=== PATIENT | female | born 1940 | race Caucasian/White ===

== ENCOUNTER 2016-06-12 20:50 | Inpatient (IN) | payer MEDICARE, OTHER ==
[~2016-06-12] VITALS: Ht 144.8 cm; Wt 49.4 kg
[2016-06-13] VITALS (8 sets, daily range): BP systolic 148–194; RESP 12–22; TEMP 97.3–98.9; Ht 144.8 cm; Wt 49.4 kg
[2016-06-13] MEDS ORDERED: ACETAMINOPHEN 325 MG TAB PO PRN (02:15)
[2016-06-13] MEDS ORDERED: ONDANSETRON 4 MG VIAL IV PUSH PRN (02:15)
[2016-06-13] MEDS: SODIUM BICARB 8.4% 150 ML in DEXTROSE 5% 1,000 ML IV SCH ×2 (03:44→20:49)
[2016-06-13] MEDS: amLODIPine 10 MG TAB PO SCH (11:56)
[2016-06-13] MEDS ORDERED: MISSING DOSE XX ONE (15:55)
[2016-06-14] VITALS (11 sets, daily range): BP systolic 137–171; RESP 16–20; TEMP 97.3–100.2
[2016-06-14] MEDS ORDERED: MISSING DOSE XX ONE (06:50)
[2016-06-14] MEDS: SODIUM BICARB 8.4% 150 ML in DEXTROSE 5% 1,000 ML IV SCH (07:37)
[2016-06-14] MEDS: amLODIPine 10 MG TAB PO SCH (09:13)
[2016-06-14] MEDS ORDERED: LORAZEPAM 2 MG/ML VIAL IV PRN (18:30)
[2016-06-14] MEDS: LEVETIRACETAM INJ 500 MG in SODIUM CHLORIDE 0.9% 100 ML IV SCH (20:29)
[2016-06-14] MEDS ORDERED: CEFTRIAXONE 1 GM in SODIUM CHLORIDE 0.9% 50 ML IV ONE (20:35)
[2016-06-14] MEDS: EMYCIN OP OINT 3.5 GM EYE EACH SCH ×2 (21:00)
[2016-06-14] MEDS: LATANOPROST OP SOLN EYE EACH SCH (21:00)
[2016-06-14] MEDS: SODIUM CHLORIDE 0.9% FLUSH BAG 500 ML IV SCH (22:50)
[2016-06-15 04:12] VITALS: BP_SYST 148; RESP 18; TEMP 98.1
[2016-06-15 07:25] VITALS: BP_SYST 159; RESP 18; TEMP 98.3
[2016-06-15] MEDS: CEFTRIAXONE 1 GM in SODIUM CHLORIDE 0.9% 50 ML IV SCH (09:55)
[2016-06-15] MEDS: amLODIPine 10 MG TAB PO SCH (09:56)
[2016-06-15] MEDS: LEVETIRACETAM INJ 500 MG in SODIUM CHLORIDE 0.9% 100 ML IV SCH ×2 (10:48→19:55)
[2016-06-15 11:35] VITALS: BP_SYST 157; RESP 16; TEMP 97.7
[2016-06-15] MEDS ORDERED: SYSTANE OP SOLN EYE EACH PRN (15:10)
[2016-06-15] MEDS ORDERED: **NOTE TO NURSE XX SCH (15:14)
[2016-06-15 15:42] VITALS: BP_SYST 134; TEMP 98.2
[2016-06-15 19:57] VITALS: BP_SYST 144; RESP 18; TEMP 98.7
[2016-06-15] MEDS: LATANOPROST OP SOLN EYE EACH SCH (20:02)
[2016-06-15] MEDS: ZYLET EYE EACH SCH (20:02)
[2016-06-15] MEDS: EMYCIN OP OINT 3.5 GM EYE EACH SCH ×2 (20:03)
[2016-06-15 23:14] VITALS: BP_SYST 151; RESP 18; TEMP 98.5
[2016-06-16] VITALS (7 sets, daily range): BP systolic 126–156; RESP 16–20; TEMP 97.6–98.8
[2016-06-16] MEDS: SODIUM CHLORIDE 0.9% FLUSH BAG 500 ML IV SCH (04:12)
[2016-06-16] MEDS: ZYLET EYE EACH SCH ×2 (08:37→20:11)
[2016-06-16] MEDS: CEFTRIAXONE 1 GM in SODIUM CHLORIDE 0.9% 50 ML IV SCH (08:37)
[2016-06-16] MEDS: LEVETIRACETAM INJ 500 MG in SODIUM CHLORIDE 0.9% 100 ML IV SCH ×2 (08:37→20:12)
[2016-06-16] MEDS: amLODIPine 10 MG TAB PO SCH (08:37)
[2016-06-16] MEDS: DUONEB INH SCH ×3 (16:47→22:26)
[2016-06-16] MEDS ORDERED: MISSING DOSE XX ONE (17:00)
[2016-06-16] MEDS: FERROUS SUL PO SCH (17:20)
[2016-06-16] MEDS: DOCUSATE SOD 100 MG CAP PO SCH (20:11)
[2016-06-16] MEDS: EMYCIN OP OINT 3.5 GM EYE EACH SCH ×2 (20:12)
[2016-06-16] MEDS: LATANOPROST OP SOLN EYE EACH SCH (20:12)
[2016-06-17 03:00] VITALS: BP_SYST 141; RESP 18; TEMP 98.7
[2016-06-17] MEDS: SODIUM CHLORIDE 0.9% FLUSH BAG 500 ML IV SCH (06:01)
[2016-06-17] MEDS: DUONEB INH SCH ×5 (06:32→22:32)
[2016-06-17 07:52] VITALS: BP_SYST 135; RESP 18; TEMP 98.5
[2016-06-17] MEDS: LEVETIRACETAM INJ 500 MG in SODIUM CHLORIDE 0.9% 100 ML IV SCH ×2 (08:15→19:54)
[2016-06-17] MEDS: amLODIPine 10 MG TAB PO SCH (08:15)
[2016-06-17] MEDS ORDERED: MISSING DOSE XX ONE (08:15)
[2016-06-17] MEDS: ZYLET EYE EACH SCH ×3 (08:15→21:00)
[2016-06-17] MEDS: CEFTRIAXONE 1 GM in SODIUM CHLORIDE 0.9% 50 ML IV SCH (09:04)
[2016-06-17] MEDS: FERROUS SUL PO SCH (09:05)
[2016-06-17 11:44] VITALS: BP_SYST 132; RESP 18; TEMP 98
[2016-06-17 16:21] VITALS: BP_SYST 125; RESP 18; TEMP 98.3
[2016-06-17 20:00] VITALS: BP_SYST 135; RESP 18; TEMP 98.2
[2016-06-17] MEDS: LATANOPROST OP SOLN EYE EACH SCH (20:23)
[2016-06-17] MEDS: DOCUSATE SOD 100 MG CAP PO SCH (20:24)
[2016-06-17] MEDS: EMYCIN OP OINT 3.5 GM EYE EACH SCH ×3 (20:25→20:29)
[2016-06-18] VITALS: BP_SYST 151; RESP 18; TEMP 98.6
[2016-06-18] MEDS: SODIUM CHLORIDE 0.9% FLUSH BAG 500 ML IV SCH (05:09)
[2016-06-18] MEDS: DUONEB INH SCH ×5 (06:14→22:11)
[2016-06-18 07:42] VITALS: BP_SYST 145; RESP 18; TEMP 98
[2016-06-18] MEDS: LEVETIRACETAM INJ 500 MG in SODIUM CHLORIDE 0.9% 100 ML IV SCH ×2 (09:34→20:20)
[2016-06-18] MEDS: amLODIPine 10 MG TAB PO SCH (09:36)
[2016-06-18] MEDS: CEFTRIAXONE 1 GM in SODIUM CHLORIDE 0.9% 50 ML IV SCH (09:37)
[2016-06-18] MEDS: ZYLET EYE EACH SCH ×2 (09:37→21:01)
[2016-06-18] MEDS: FERROUS SUL PO SCH (09:37)
[2016-06-18 11:46] VITALS: BP_SYST 136; RESP 20; TEMP 98.3
[2016-06-18 15:32] VITALS: BP_SYST 136; RESP 20; TEMP 98.3
[2016-06-18 20:03] VITALS: BP_SYST 143; RESP 20; TEMP 98.2
[2016-06-18] MEDS: DOCUSATE SOD 100 MG CAP PO SCH (21:01)
[2016-06-18] MEDS: EMYCIN OP OINT 3.5 GM EYE EACH SCH (21:01)
[2016-06-18] MEDS: LATANOPROST OP SOLN EYE EACH SCH (21:02)
[2016-06-18 23:35] VITALS: BP_SYST 135; RESP 20; TEMP 98.6
[2016-06-19 03:14] VITALS: BP_SYST 126; RESP 18; TEMP 98.9
[2016-06-19] MEDS: SODIUM CHLORIDE 0.9% FLUSH BAG 500 ML IV SCH (05:07)
[2016-06-19] MEDS: DUONEB INH SCH ×5 (07:29→23:06)
[2016-06-19 07:30] VITALS: BP_SYST 140; RESP 20; TEMP 98.9
[2016-06-19] MEDS ORDERED: KAYEXOLATE 15 GM/60 ML BTL PO ONE (08:15)
[2016-06-19] MEDS: LEVETIRACETAM INJ 500 MG in SODIUM CHLORIDE 0.9% 100 ML IV SCH ×2 (08:53→19:26)
[2016-06-19] MEDS: ZYLET EYE EACH SCH ×2 (08:53→21:35)
[2016-06-19] MEDS: amLODIPine 10 MG TAB PO SCH (08:54)
[2016-06-19] MEDS: FERROUS SUL PO SCH (08:54)
[2016-06-19] MEDS: CEFTRIAXONE 1 GM in SODIUM CHLORIDE 0.9% 50 ML IV SCH (10:06)
[2016-06-19] MEDS: LIDOCAINE 5% 700 MG PATCH TOPICAL SCH (10:37)
[2016-06-19 11:45] VITALS: BP_SYST 123; RESP 20; TEMP 98.1
[2016-06-19 15:15] VITALS: BP_SYST 150; RESP 18; TEMP 98.3
[2016-06-19] MEDS: SODIUM CHLORIDE 0.9% 1,000 ML IV SCH (19:26)
[2016-06-19 20:00] VITALS: BP_SYST 143; RESP 18; TEMP 98
[2016-06-19] MEDS: LATANOPROST OP SOLN EYE EACH SCH (21:34)
[2016-06-19] MEDS: DOCUSATE SOD 100 MG CAP PO SCH (21:34)
[2016-06-19] MEDS: EMYCIN OP OINT 3.5 GM EYE EACH SCH (21:34)
[2016-06-20] VITALS (7 sets, daily range): BP systolic 136–157; RESP 17–18; TEMP 97.9–99
[2016-06-20] MEDS: SODIUM CHLORIDE 0.9% FLUSH BAG 500 ML IV SCH (05:27)
[2016-06-20] MEDS ORDERED: KAYEXOLATE 15 GM/60 ML BTL PO ONE (06:00)
[2016-06-20] MEDS: DUONEB INH SCH ×5 (07:39→22:37)
[2016-06-20] MEDS ORDERED: MISSING DOSE XX ONE (08:10)
[2016-06-20] MEDS: CEFTRIAXONE 1 GM in SODIUM CHLORIDE 0.9% 50 ML IV SCH (08:31)
[2016-06-20] MEDS: LIDOCAINE 5% 700 MG PATCH TOPICAL SCH (08:31)
[2016-06-20] MEDS: LEVETIRACETAM INJ 500 MG in SODIUM CHLORIDE 0.9% 100 ML IV SCH ×2 (08:31→20:45)
[2016-06-20] MEDS: ZYLET EYE EACH SCH ×2 (08:32→20:45)
[2016-06-20] MEDS: amLODIPine 10 MG TAB PO SCH (08:32)
[2016-06-20] MEDS: FERROUS SUL PO SCH (08:32)
[2016-06-20] MEDS ORDERED: EPOETIN 10,000 UNIT VIAL SUBQ SCH (09:00)
[2016-06-20] MEDS: Furosemide 40 MG/4 ML VIAL IV SCH ×2 (09:33→15:06)
[2016-06-20] MEDS: SODIUM CHLORIDE 0.9% 1,000 ML IV SCH (16:58)
[2016-06-20] MEDS: LATANOPROST OP SOLN EYE EACH SCH (20:45)
[2016-06-20] MEDS: EMYCIN OP OINT 3.5 GM EYE EACH SCH (20:45)
[2016-06-20] MEDS: DOCUSATE SOD 100 MG CAP PO SCH (20:45)
[2016-06-21] MEDS: SODIUM CHLORIDE 0.9% FLUSH BAG 500 ML IV SCH (01:24)
[2016-06-21 03:30] VITALS: BP_SYST 156; RESP 17; TEMP 98.5
[2016-06-21] MEDS: DUONEB INH SCH ×5 (06:29→22:48)
[2016-06-21] MEDS: LEVETIRACETAM INJ 500 MG in SODIUM CHLORIDE 0.9% 100 ML IV SCH ×2 (07:51→19:54)
[2016-06-21 08:11] VITALS: BP_SYST 156; RESP 18; TEMP 98.6
[2016-06-21] MEDS: FERROUS SUL PO SCH ×2 (09:00→10:03)
[2016-06-21] MEDS ORDERED: MISSING DOSE XX ONE (09:40)
[2016-06-21] MEDS: amLODIPine 10 MG TAB PO SCH (10:02)
[2016-06-21] MEDS: ZYLET EYE EACH SCH ×2 (10:03→19:54)
[2016-06-21] MEDS: CEFTRIAXONE 1 GM in SODIUM CHLORIDE 0.9% 50 ML IV SCH (10:03)
[2016-06-21] MEDS: LIDOCAINE 5% 700 MG PATCH TOPICAL SCH (10:04)
[2016-06-21 11:58] VITALS: BP_SYST 147; RESP 16; TEMP 98.4
[2016-06-21] MEDS: SODIUM CHLORIDE 0.9% 1,000 ML IV SCH (12:36)
[2016-06-21 15:38] VITALS: BP_SYST 142; RESP 14; TEMP 98.2
[2016-06-21 19:54] VITALS: BP_SYST 169; RESP 16; TEMP 98.1
[2016-06-21] MEDS: EMYCIN OP OINT 3.5 GM EYE EACH SCH (19:55)
[2016-06-21] MEDS: LATANOPROST OP SOLN EYE EACH SCH (19:55)
[2016-06-21] MEDS: DOCUSATE SOD 100 MG CAP PO SCH (19:56)
[2016-06-22] VITALS (7 sets, daily range): BP systolic 132–154; RESP 16–18; TEMP 97.5–99.2
[2016-06-22] MEDS: SODIUM CHLORIDE 0.9% FLUSH BAG 500 ML IV SCH (06:00)
[2016-06-22] MEDS: DUONEB INH SCH ×5 (07:29→22:28)
[2016-06-22] MEDS: LEVETIRACETAM INJ 500 MG in SODIUM CHLORIDE 0.9% 100 ML IV SCH ×2 (08:45→20:20)
[2016-06-22] MEDS: ZYLET EYE EACH SCH ×2 (08:46→20:21)
[2016-06-22] MEDS: LIDOCAINE 5% 700 MG PATCH TOPICAL SCH (08:46)
[2016-06-22] MEDS: amLODIPine 10 MG TAB PO SCH (08:46)
[2016-06-22] MEDS: FERROUS SUL PO SCH (08:46)
[2016-06-22] MEDS ORDERED: KAYEXOLATE 15 GM/60 ML BTL PO ONE (09:20)
[2016-06-22] MEDS ORDERED: Furosemide 20 MG TAB PO ONE (10:45)
[2016-06-22] MEDS: DOCUSATE SOD 100 MG CAP PO SCH (20:20)
[2016-06-22] MEDS: EMYCIN OP OINT 3.5 GM EYE EACH SCH (20:21)
[2016-06-22] MEDS: LATANOPROST OP SOLN EYE EACH SCH (20:22)
[2016-06-23] MEDS: SODIUM CHLORIDE 0.9% FLUSH BAG 500 ML IV SCH (01:21)
[2016-06-23 03:00] VITALS: BP_SYST 125; RESP 18; TEMP 98.6
[2016-06-23] MEDS: DUONEB INH SCH ×5 (07:31→22:37)
[2016-06-23 07:46] VITALS: BP_SYST 135; RESP 18; TEMP 98
[2016-06-23] MEDS: LEVETIRACETAM INJ 500 MG in SODIUM CHLORIDE 0.9% 100 ML IV SCH ×2 (08:14→21:14)
[2016-06-23] MEDS: amLODIPine 10 MG TAB PO SCH (08:15)
[2016-06-23] MEDS: Furosemide 40 MG TAB PO SCH (08:16)
[2016-06-23] MEDS: LIDOCAINE 5% 700 MG PATCH TOPICAL SCH (08:17)
[2016-06-23] MEDS: ZYLET EYE EACH SCH ×2 (08:17→21:14)
[2016-06-23] MEDS: FERROUS SUL PO SCH (08:17)
[2016-06-23 11:11] VITALS: BP_SYST 130; RESP 18; TEMP 98
[2016-06-23 15:28] VITALS: BP_SYST 129; RESP 18; TEMP 97.7
[2016-06-23] MEDS: CALCIUM ACETATE 667MG CAP PO SCH (17:23)
[2016-06-23 19:00] VITALS: BP_SYST 161; RESP 18; TEMP 97.6
[2016-06-23] MEDS: EMYCIN OP OINT 3.5 GM EYE EACH SCH (21:14)
[2016-06-23] MEDS: LATANOPROST OP SOLN EYE EACH SCH (21:16)
[2016-06-23] MEDS: DOCUSATE SOD 100 MG CAP PO SCH (21:16)
[2016-06-23 23:21] VITALS: BP_SYST 138; RESP 18; TEMP 98.2
[2016-06-24 03:13] VITALS: BP_SYST 149; RESP 20; TEMP 98.6
[2016-06-24] MEDS: SODIUM CHLORIDE 0.9% FLUSH BAG 500 ML IV SCH ×2 (06:33→18:26)
[2016-06-24] MEDS: DUONEB INH SCH ×5 (07:06→23:27)
[2016-06-24 07:20] VITALS: BP_SYST 147; RESP 18; TEMP 97.7
[2016-06-24] MEDS: ZYLET EYE EACH SCH ×2 (08:33→22:16)
[2016-06-24] MEDS: LEVETIRACETAM INJ 500 MG in SODIUM CHLORIDE 0.9% 100 ML IV SCH ×2 (08:33→22:15)
[2016-06-24] MEDS: FERROUS SUL PO SCH (08:34)
[2016-06-24] MEDS: amLODIPine 10 MG TAB PO SCH (08:34)
[2016-06-24] MEDS: Furosemide 40 MG TAB PO SCH (08:34)
[2016-06-24] MEDS: CALCIUM ACETATE 667MG CAP PO SCH ×3 (08:34→17:31)
[2016-06-24] MEDS: LIDOCAINE 5% 700 MG PATCH TOPICAL SCH (08:35)
[2016-06-24 11:23] VITALS: BP_SYST 123; RESP 16; TEMP 98.1
[2016-06-24 15:15] VITALS: BP_SYST 135; RESP 16; TEMP 97.8
[2016-06-24 19:50] VITALS: BP_SYST 139; RESP 16; TEMP 98.6
[2016-06-24] MEDS: DOCUSATE SOD 100 MG CAP PO SCH (22:15)
[2016-06-24] MEDS: LATANOPROST OP SOLN EYE EACH SCH (22:16)
[2016-06-24] MEDS: EMYCIN OP OINT 3.5 GM EYE EACH SCH (22:16)
[2016-06-24 23:25] VITALS: BP_SYST 135; RESP 18; TEMP 98.3
[2016-06-25] VITALS (12 sets, daily range): BP systolic 122–142; RESP 16–18; TEMP 98.3–99.5
[2016-06-25] MEDS: DUONEB INH SCH ×4 (07:19→19:00)
[2016-06-25] MEDS ORDERED: MISSING DOSE XX ONE (09:05)
[2016-06-25] MEDS: LEVETIRACETAM INJ 500 MG in SODIUM CHLORIDE 0.9% 100 ML IV SCH (09:12)
[2016-06-25] MEDS: amLODIPine 10 MG TAB PO SCH (09:13)
[2016-06-25] MEDS: CALCIUM ACETATE 667MG CAP PO SCH ×3 (09:13→16:19)
[2016-06-25] MEDS: Furosemide 40 MG TAB PO SCH (09:13)
[2016-06-25] MEDS: ZYLET EYE EACH SCH (09:13)
[2016-06-25] MEDS: LIDOCAINE 5% 700 MG PATCH TOPICAL SCH (09:14)
[2016-06-25] MEDS: FERROUS SUL PO SCH (09:56)
[2016-06-25] MEDS ORDERED: POLYETHYLENE GLYCOL 17 GM PACKET PO SCH (12:25)
== END 2016-06-25 18:30 | DRG 100 ==
LOC: ENRESERVDT → ENRESERVTM → ENPENDDIS 06-13 02:46 → 3NT 06-13 02:46 → PCU 06-14 20:02 → PCU2 06-21 18:14
PROVIDERS: ADMIT Internal Medicine; ATTEND Internal Medicine
DX: R56.9 Unspecified convulsions (principal); E43 Unspecified severe protein-calorie malnutrition; I13.0 Hypertensive heart and chronic kidney disease with heart failure and stage 1 through stage 4 chronic kidney disease, or unspecified chronic kidney disease; N18.4 Chronic kidney disease, stage 4 (severe); N17.9 Acute kidney failure, unspecified; E87.2 Acidosis; M62.82 Rhabdomyolysis; Z68.1 Body mass index [BMI] 19.9 or less, adult; I50.9 Heart failure, unspecified; D63.1 Anemia in chronic kidney disease; K21.9 Gastro-esophageal reflux disease without esophagitis; M19.90 Unspecified osteoarthritis, unspecified site; E87.5 Hyperkalemia; Z85.038 Personal history of other malignant neoplasm of large intestine; Z87.891 Personal history of nicotine dependence
CPT/HCPCS: 36430; 36600; 71020; 72072; 74020; 80048; 80051; 80053; 80069; 81001; 81050; 82040; 82330; 82550; 82575; 82803; 82947; 83540; 83605; 83735; 83880; 84100; 84132; 84466; 85007; 85025; 85027; 86850; 86900; 86901; 86923; 94640; 94799; 99232; 99233; 99239

== ENCOUNTER 2016-07-12 11:34 | Inpatient (IN) | payer MEDICARE, OTHER ==
[~2016-07-12] VITALS: Ht 142.2 cm; Wt 39.9 kg
[2016-07-12] MEDS ORDERED: NEB-ALBUTEROL 2.5 MG/3 ML INH ONE (15:23)
[2016-07-12] MEDS ORDERED: DEXTROSE 50% 50 ML ONE (15:23)
[2016-07-12] MEDS ORDERED: humuLIN REG INSULIN ONE (15:23)
[2016-07-12] MEDS ORDERED: CALCIUM CHLORIDE 100 MG/ML SYR ONE (15:24)
[2016-07-12] MEDS ORDERED: KAYEXOLATE 15 GM/60 ML BTL PO ONE (17:25)
[2016-07-12] MEDS: amLODIPine 10 MG TAB PO SCH ×2 (17:30→21:39)
[2016-07-12] MEDS ORDERED: SALINE FLUSH 10 ML FLUSH PRN (17:30)
[2016-07-12] MEDS ORDERED: ACETAMINOPHEN 325 MG TAB PO PRN (17:30)
[2016-07-12] MEDS ORDERED: MAG HYDROX 30 ML UDC PO PRN (17:30)
[2016-07-12] MEDS ORDERED: ARTIF TEARS OP SOLN 0.4ML EYE EACH PRN (17:30)
[2016-07-12] MEDS ORDERED: ONDANSETRON 4 MG VIAL IV PRN (17:30)
[2016-07-12] MEDS ORDERED: BISACODYL 10 MG SUPP RECTAL PRN (17:30)
[2016-07-12] MEDS ORDERED: BISACODYL EC 5 MG TAB PO PRN (17:30)
[2016-07-12] MEDS ORDERED: SODIUM CHLORIDE 0.45% 1,000 ML IV SCH (17:50)
[2016-07-12] MEDS ORDERED: SODIUM CHLORIDE 0.9% 1,000 ML IV SCH (18:05)
[2016-07-12 19:30] VITALS: BP_SYST 112; RESP 16
[2016-07-12 19:49] VITALS: Ht 142.2 cm; Wt 39.9 kg
[2016-07-12] MEDS: DUONEB INH SCH ×2 (19:59→23:14)
[2016-07-12] MEDS: [UNRECOGNIZED DRUG - REMARK] XX SCH (20:00)
[2016-07-12 20:01] VITALS: RESP 16
[2016-07-12] MEDS ORDERED: BUMETANIDE 1 MG/4 ML VIAL IV ONE (20:55)
[2016-07-12] MEDS: DOCUSATE SOD 100 MG CAP PO SCH (21:00)
[2016-07-12] MEDS: LATANOPROST OP SOLN EYE EACH SCH (21:00)
[2016-07-12] MEDS: TOBRAMYCIN EYE EACH SCH (21:00)
[2016-07-12] MEDS: LOTEPRED ETAB EYE EACH SCH (21:00)
[2016-07-12] MEDS: EMYCIN OP OINT 3.5 GM EYE EACH SCH (21:00)
[2016-07-12] MEDS: CEFTRIAXONE 1 GM in SODIUM CHLORIDE 0.9% 50 ML IV SCH (21:38)
[2016-07-12] MEDS: CALCIUM ACETATE 667MG CAP PO SCH (21:39)
[2016-07-12] MEDS: LEVETIRACETAM 500 MG TAB PO SCH (21:39)
[2016-07-12] MEDS: MIRTAZAPINE 15 MG TAB PO SCH (21:39)
[2016-07-12] MEDS: CHOLECALCIFEROL 1,000 UNITS TAB PO SCH (21:40)
[2016-07-12] MEDS: FERROUS SUL PO SCH (21:52)
[2016-07-12] MEDS: SALINE FLUSH 10 ML FLUSH SCH (21:53)
[2016-07-12] MEDS: SODIUM CHLORIDE 0.9% FLUSH BAG 500 ML IV SCH (21:55)
[2016-07-12] MEDS ORDERED: SODIUM BICARB 8.4% IV SCH (23:10)
[2016-07-12] MEDS ORDERED: SODIUM CHLORIDE 0.9% IV SCH (23:10)
[2016-07-13] VITALS (7 sets, daily range): BP systolic 147–189; RESP 16–20; TEMP 97.1–98.8
[2016-07-13] MEDS ORDERED: SODIUM BICARB 8.4% IV ONE (00:50)
[2016-07-13] MEDS ORDERED: SODIUM CHLORIDE 0.9% IV ONE (00:50)
[2016-07-13] MEDS: LEVOTHYROXINE 0.05 MG TAB PO SCH (05:51)
[2016-07-13] MEDS: SALINE FLUSH 10 ML FLUSH SCH ×2 (07:31→20:12)
[2016-07-13] MEDS: [UNRECOGNIZED DRUG - REMARK] XX SCH ×2 (07:31→20:00)
[2016-07-13] MEDS: DUONEB INH SCH ×5 (07:38→23:17)
[2016-07-13] MEDS: FERROUS SUL PO SCH (08:34)
[2016-07-13] MEDS: CEFTRIAXONE 1 GM in SODIUM CHLORIDE 0.9% 50 ML IV SCH (08:34)
[2016-07-13] MEDS: CHOLECALCIFEROL 1,000 UNITS TAB PO SCH (08:34)
[2016-07-13] MEDS: CALCIUM ACETATE 667MG CAP PO SCH ×3 (08:34→17:20)
[2016-07-13] MEDS: amLODIPine 10 MG TAB PO SCH (08:34)
[2016-07-13] MEDS: LEVETIRACETAM 500 MG TAB PO SCH ×2 (08:34→19:54)
[2016-07-13] MEDS: TOBRAMYCIN EYE EACH SCH ×2 (09:00→21:00)
[2016-07-13] MEDS ORDERED: KAYEXOLATE 15 GM/60 ML BTL PO SCH (09:00)
[2016-07-13] MEDS: LOTEPRED ETAB EYE EACH SCH ×2 (09:00→21:00)
[2016-07-13] MEDS ORDERED: EPOETIN IV SCH (11:20)
[2016-07-13] MEDS ORDERED: hePARIN 1,000 UNITS/ML (PORCINE) 10 ML IV PRN (11:20)
[2016-07-13] MEDS ORDERED: SODIUM CHLORIDE 0.9% 1,000 ML IV SCH ×2 (11:20)
[2016-07-13] MEDS ORDERED: ALBUMIN HUMAN 25GM (25%) 100 ML IV PRN (11:20)
[2016-07-13] MEDS ORDERED: PHARMACY TO DOSE VANCOMYCIN IV SCH (13:25)
[2016-07-13] MEDS: DOCUSATE SOD 100 MG CAP PO SCH (19:54)
[2016-07-13] MEDS: EMYCIN OP OINT 3.5 GM EYE EACH SCH (19:54)
[2016-07-13] MEDS: MIRTAZAPINE 15 MG TAB PO SCH (19:54)
[2016-07-13] MEDS: LATANOPROST OP SOLN EYE EACH SCH (19:55)
[2016-07-13] MEDS ORDERED: VANCOMYCIN 750 MG in SODIUM CHLORIDE 0.9% 250 ML IV ONE (20:00)
[2016-07-14] VITALS (7 sets, daily range): BP systolic 142–169; RESP 16–20; TEMP 98.1–99.3
[2016-07-14] MEDS: SODIUM CHLORIDE 0.9% FLUSH BAG 500 ML IV SCH ×2 (06:00)
[2016-07-14] MEDS: LEVOTHYROXINE 0.05 MG TAB PO SCH (06:26)
[2016-07-14] MEDS: DUONEB INH SCH ×5 (07:32→23:32)
[2016-07-14] MEDS: [UNRECOGNIZED DRUG - REMARK] XX SCH ×2 (08:00→20:27)
[2016-07-14] MEDS: CALCIUM ACETATE 667MG CAP PO SCH ×3 (08:00→16:25)
[2016-07-14] MEDS: SALINE FLUSH 10 ML FLUSH SCH ×2 (08:00→20:27)
[2016-07-14] MEDS: LEVETIRACETAM 500 MG TAB PO SCH ×2 (09:00→20:17)
[2016-07-14] MEDS: TOBRAMYCIN EYE EACH SCH ×2 (09:00→20:27)
[2016-07-14] MEDS: LOTEPRED ETAB EYE EACH SCH ×2 (09:00→20:27)
[2016-07-14] MEDS: amLODIPine 10 MG TAB PO SCH (09:00)
[2016-07-14] MEDS: CHOLECALCIFEROL 1,000 UNITS TAB PO SCH (09:00)
[2016-07-14] MEDS ORDERED: VANCOMYCIN 500 MG in SODIUM CHLORIDE 0.9% 100 ML IV ONE (20:00)
[2016-07-14] MEDS: MIRTAZAPINE 15 MG TAB PO SCH (20:17)
[2016-07-14] MEDS: DOCUSATE SOD 100 MG CAP PO SCH (20:17)
[2016-07-14] MEDS: LATANOPROST OP SOLN EYE EACH SCH (20:18)
[2016-07-14] MEDS: EMYCIN OP OINT 3.5 GM EYE EACH SCH (20:18)
[2016-07-15 02:43] VITALS: BP_SYST 156; RESP 18; TEMP 98.1
[2016-07-15] MEDS: LEVOTHYROXINE 0.05 MG TAB PO SCH (05:39)
[2016-07-15] MEDS: SODIUM CHLORIDE 0.9% FLUSH BAG 500 ML IV SCH ×2 (05:48)
[2016-07-15] MEDS: DUONEB INH SCH ×5 (06:35→23:04)
[2016-07-15] MEDS: [UNRECOGNIZED DRUG - REMARK] XX SCH ×2 (07:15→21:28)
[2016-07-15 07:26] VITALS: BP_SYST 141; RESP 18; TEMP 98.2
[2016-07-15] MEDS: CALCIUM ACETATE 667MG CAP PO SCH ×3 (08:20→17:32)
[2016-07-15] MEDS: LEVETIRACETAM 500 MG TAB PO SCH ×2 (08:20→20:34)
[2016-07-15] MEDS: CHOLECALCIFEROL 1,000 UNITS TAB PO SCH (08:20)
[2016-07-15] MEDS: SALINE FLUSH 10 ML FLUSH SCH ×2 (08:21→20:36)
[2016-07-15] MEDS: TOBRAMYCIN EYE EACH SCH ×2 (08:23→21:00)
[2016-07-15] MEDS: LOTEPRED ETAB EYE EACH SCH ×2 (08:23→21:00)
[2016-07-15] MEDS: amLODIPine 10 MG TAB PO SCH (08:23)
[2016-07-15 11:01] VITALS: BP_SYST 142; RESP 16; TEMP 98.5
[2016-07-15 15:21] VITALS: BP_SYST 147; RESP 18; TEMP 98.7
[2016-07-15 19:00] VITALS: BP_SYST 144; RESP 18; TEMP 98.2
[2016-07-15] MEDS: DOCUSATE SOD 100 MG CAP PO SCH (20:34)
[2016-07-15] MEDS: EMYCIN OP OINT 3.5 GM EYE EACH SCH (20:35)
[2016-07-15] MEDS: LATANOPROST OP SOLN EYE EACH SCH (20:35)
[2016-07-15] MEDS: MIRTAZAPINE 15 MG TAB PO SCH (20:35)
[2016-07-16 00:22] VITALS: BP_SYST 153; RESP 16; TEMP 98
[2016-07-16] MEDS: SODIUM CHLORIDE 0.9% FLUSH BAG 500 ML IV SCH ×2 (04:55)
[2016-07-16] MEDS: LEVOTHYROXINE 0.05 MG TAB PO SCH (05:51)
[2016-07-16] MEDS: DUONEB INH SCH ×5 (06:58→22:55)
[2016-07-16 07:44] VITALS: BP_SYST 145; RESP 18; TEMP 98.3
[2016-07-16] MEDS: [UNRECOGNIZED DRUG - REMARK] XX SCH ×2 (08:00→20:00)
[2016-07-16] MEDS: CALCIUM ACETATE 667MG CAP PO SCH ×3 (08:29→17:28)
[2016-07-16] MEDS: LEVETIRACETAM 500 MG TAB PO SCH ×2 (08:29→20:57)
[2016-07-16] MEDS: CHOLECALCIFEROL 1,000 UNITS TAB PO SCH (08:29)
[2016-07-16] MEDS: SALINE FLUSH 10 ML FLUSH SCH ×2 (08:29→20:52)
[2016-07-16] MEDS: amLODIPine 10 MG TAB PO SCH (08:43)
[2016-07-16] MEDS: LOTEPRED ETAB EYE EACH SCH ×2 (08:43→21:00)
[2016-07-16] MEDS: TOBRAMYCIN EYE EACH SCH ×2 (08:43→21:00)
[2016-07-16 10:52] VITALS: BP_SYST 160; RESP 18; TEMP 98.3
[2016-07-16 15:33] VITALS: BP_SYST 145; RESP 18; TEMP 98.4
[2016-07-16] MEDS ORDERED: VANCOMYCIN 500 MG in SODIUM CHLORIDE 0.9% 100 ML IV ONE (18:00)
[2016-07-16] MEDS: LATANOPROST OP SOLN EYE EACH SCH (20:54)
[2016-07-16] MEDS: EMYCIN OP OINT 3.5 GM EYE EACH SCH (20:55)
[2016-07-16] MEDS: MIRTAZAPINE 15 MG TAB PO SCH (20:58)
[2016-07-16] MEDS: DOCUSATE SOD 100 MG CAP PO SCH (20:58)
[2016-07-16 21:29] VITALS: BP_SYST 166; RESP 16; TEMP 98
[2016-07-16 22:38] VITALS: BP_SYST 152; RESP 16; TEMP 98.3
[2016-07-17 03:02] VITALS: BP_SYST 138; RESP 16; TEMP 98.3
[2016-07-17] MEDS: SODIUM CHLORIDE 0.9% FLUSH BAG 500 ML IV SCH ×2 (06:00→06:21)
[2016-07-17] MEDS: LEVOTHYROXINE 0.05 MG TAB PO SCH (06:20)
[2016-07-17] MEDS: CALCIUM ACETATE 667MG CAP PO SCH ×3 (08:00→17:00)
[2016-07-17] MEDS: SALINE FLUSH 10 ML FLUSH SCH ×2 (08:00→19:33)
[2016-07-17] MEDS: [UNRECOGNIZED DRUG - REMARK] XX SCH ×2 (08:00→20:00)
[2016-07-17] MEDS: DUONEB INH SCH ×5 (08:07→23:00)
[2016-07-17 08:09] VITALS: BP_SYST 117; RESP 18; TEMP 97.8
[2016-07-17] MEDS: amLODIPine 10 MG TAB PO SCH (09:00)
[2016-07-17] MEDS: LOTEPRED ETAB EYE EACH SCH ×2 (09:00→21:00)
[2016-07-17] MEDS: TOBRAMYCIN EYE EACH SCH ×2 (09:00→21:00)
[2016-07-17] MEDS: LEVETIRACETAM 500 MG TAB PO SCH ×2 (09:00→19:31)
[2016-07-17] MEDS: CHOLECALCIFEROL 1,000 UNITS TAB PO SCH (09:00)
[2016-07-17 12:08] VITALS: BP_SYST 128; RESP 18; TEMP 98
[2016-07-17 15:37] VITALS: BP_SYST 137; RESP 18; TEMP 98
[2016-07-17] MEDS: LATANOPROST OP SOLN EYE EACH SCH (19:30)
[2016-07-17] MEDS: DOCUSATE SOD 100 MG CAP PO SCH (19:31)
[2016-07-17] MEDS: MIRTAZAPINE 15 MG TAB PO SCH (19:32)
[2016-07-17] MEDS: EMYCIN OP OINT 3.5 GM EYE EACH SCH (19:32)
[2016-07-17 19:39] VITALS: BP_SYST 147; RESP 16; TEMP 98.4
[2016-07-17 23:31] VITALS: BP_SYST 110; RESP 16; TEMP 99
[2016-07-18 04:36] VITALS: BP_SYST 139; RESP 16; TEMP 97.7
[2016-07-18] MEDS: SODIUM CHLORIDE 0.9% FLUSH BAG 500 ML IV SCH ×2 (06:00)
[2016-07-18] MEDS: LEVOTHYROXINE 0.05 MG TAB PO SCH (06:11)
[2016-07-18 07:29] VITALS: BP_SYST 125; RESP 18; TEMP 98
[2016-07-18] MEDS: DUONEB INH SCH ×4 (07:37→19:00)
[2016-07-18] MEDS: [UNRECOGNIZED DRUG - REMARK] XX SCH (08:00)
[2016-07-18] MEDS: LEVETIRACETAM 500 MG TAB PO SCH (09:06)
[2016-07-18] MEDS: CALCIUM ACETATE 667MG CAP PO SCH ×3 (09:07→17:00)
[2016-07-18] MEDS: amLODIPine 10 MG TAB PO SCH (09:07)
[2016-07-18] MEDS: SALINE FLUSH 10 ML FLUSH SCH (09:08)
[2016-07-18] MEDS: CHOLECALCIFEROL 1,000 UNITS TAB PO SCH (09:11)
[2016-07-18] MEDS: LOTEPRED ETAB EYE EACH SCH (09:12)
[2016-07-18] MEDS: TOBRAMYCIN EYE EACH SCH (09:12)
[2016-07-18 11:31] VITALS: BP_SYST 135; RESP 18; TEMP 97.8
[2016-07-18 15:37] VITALS: BP_SYST 112; RESP 18; TEMP 98.3
[2016-07-18] MEDS ORDERED: VANCOMYCIN 500 MG in SODIUM CHLORIDE 0.9% 100 ML IV ONE (20:00)
== END 2016-07-18 19:00 | disposition home or self-care (01) | DRG 682 ==
LOC: ENRESERVDT → ENRESERVTM → ER 11:34 → EMR 17:31 → ENPENDDIS 17:31 → 4THW 19:34
PROVIDERS: ADMIT Family Medicine Addiction Medicine; ATTEND Family Medicine Addiction Medicine
PROC: 5A1D60Z (ICD-10-PCS; principal; 2016-07-14)
DX: N17.9 Acute kidney failure, unspecified (principal); E43 Unspecified severe protein-calorie malnutrition; I13.2 Hypertensive heart and chronic kidney disease with heart failure and with stage 5 chronic kidney disease, or end stage renal disease; E87.5 Hyperkalemia; E86.0 Dehydration; F03.90 Unspecified dementia, unspecified severity, without behavioral disturbance, psychotic disturbance, mood disturbance, and anxiety; N39.0 Urinary tract infection, site not specified; N18.6 End stage renal disease; I50.9 Heart failure, unspecified; Z99.2 Dependence on renal dialysis; Z87.891 Personal history of nicotine dependence; D63.1 Anemia in chronic kidney disease; E03.9 Hypothyroidism, unspecified; K21.9 Gastro-esophageal reflux disease without esophagitis; Z68.23 Body mass index [BMI] 23.0-23.9, adult; B95.2 Enterococcus as the cause of diseases classified elsewhere; Z85.038 Personal history of other malignant neoplasm of large intestine; M19.90 Unspecified osteoarthritis, unspecified site
CPT/HCPCS: 36415; 80048; 80053; 80069; 80202; 81001; 82728; 83540; 84100; 84466; 85025; 87077; 87088; 87186; 87340; 93005; 94640; 94799; 96374; 96375; 99223; 99233; 99239